=== PATIENT | male | born 1975 | race Two or more races ===

== ENCOUNTER 2021-12-07 08:14 | Emergency (ER) | payer OTHER ==
[~2021-12-07] VITALS: Ht 172.7 cm; Wt 99.8 kg
[~2021-12-07 08:14] MED LIST: DICYCLOMINE HCL20 MG PO; HYOSCYAMINE0.125 MG PO; PANTOPRAZOLE SO40 MG PO
[2021-12-07] MEDS ORDERED: SODIUM CHLORIDE 0.9% 1000ML 1,000 ML IV SCH (08:45)
[2021-12-07] MEDS ORDERED: KETOROLAC TROMETHAMINE 30 MG/ML VIAL IV STA (08:52)
[2021-12-07] MEDS: SODIUM CHLORIDE 0.9% 1000ML 1,000 ML IV SCH ×2 (09:33→10:51)
[2021-12-07] MEDS ORDERED: KETOROLAC TROMETHAMINE 30 MG/ML VIAL ONE (09:35)
[2021-12-07] MEDS ORDERED: SODIUM CHLORIDE 0.9% 100 ML ONE (10:09)
[2021-12-07] MEDS ORDERED: IOPAMIDOL 370 MG/ML 200 ML INFUS..BTL INJ ONE (10:10)
[2021-12-07] MEDS ORDERED: SODIUM CHLORIDE 0.9% 1000ML 1,000 ML ONE (10:46)
[2021-12-07] MEDS ORDERED: DEXAMETHASONE SOD PHOS 10 MG/1 ML VIAL IV ONE (11:45)
[2021-12-07] MEDS ORDERED: CEFTRIAXONE 1 GM in SODIUM CHLORIDE 0.9% 50ML 50 ML IV ONE (11:45)
[2021-12-07] MEDS ORDERED: SODIUM CHLORIDE 0.9% 50ML 50 ML ONE (12:05)
[2021-12-07] MEDS ORDERED: SODIUM CHLORIDE 0.9% 250ML 250 ML ONE (12:05)
[2021-12-07] MEDS ORDERED: CEFTRIAXONE 1 GM VIAL ONE (12:05)
[2021-12-07] MEDS ORDERED: DEXAMETHASONE SOD PHOS INJ 4 MG/ML SDV ONE (12:05)
[2021-12-07] MEDS ORDERED: CEFDINIR300 MG PO (12:14)
[2021-12-07 12:15] LABS: CREATINE KINASE MB 0.3 ng/mL (0-5.0)
[2021-12-07] MEDS ORDERED: ZITHROMAX500 MG PO (12:15)
[2021-12-07] MEDS ORDERED: DEXAMETHASONE6 MG PO (12:17)
[2021-12-07 12:42] VITALS: BP 122/78
== END 2021-12-07 12:45 | disposition home or self-care (01) ==
LOC: FSED 08:35
DX: U07.1 COVID-19 (principal); J12.82 Pneumonia due to coronavirus disease 2019; R05.9 Cough, unspecified; E86.0 Dehydration; I95.1 Orthostatic hypotension; R94.31 Abnormal electrocardiogram [ECG] [EKG]
CPT/HCPCS: 36415; 70450; 71260; 82550; 82553; 84484; 85379; 93005; 99284; J0456; J0696; J1100 ×2; J1885; J7030; J7050 ×2; Q9967; U0002